=== PATIENT | female | born 1965 | race Caucasian/White ===

== ENCOUNTER 2018-09-27 09:59 | Emergency (ER) | payer SELFPAY ==
[~2018-09-27] VITALS: Ht 172.7 cm; Wt 108.4 kg
[~2018-09-27 09:59] MED LIST: ALBU90I INH; ASPI325; AZIT250 PO; BENZ100A PO; CODGUAEL PO; CRUTCH4 USE; CYCL10 PO; HYDACE5 PO; METO5A PO; MOXI400 PO; NEOPOLHCSU OT; OXYACE5T PO; PRED20 PO; Zithromax250 MG PO; Zofran Odt4 MG SL
[2018-09-27] MEDS ORDERED: Aspirin EC81 MG (10:21)
[2018-09-27] MEDS ORDERED: Bactrim Ds Tab1 EACH PO (10:22)
[2018-09-27] MEDS ORDERED: Norco 7.5-3251 EACH PO (10:22)
[2018-09-27 13:04] LABS: Source, Urine Clean Catch
[2018-09-27 13:11] LABS: Bilirubin, Urine Neg (Neg); Blood, Urine Neg (Neg); Glucose Qualitative, Urine Neg (Neg); Ketones, Urine 2+ (Neg); Leukocyte Esterase, Urine Neg (Neg); Nitrite, Urine Neg (Neg); Protein, Urine Neg (Neg); Urobilinogen, Urine NORM (Normal)
[2018-09-27] MEDS ORDERED: Norco 5-325 Ta1 EACH PO (13:26)
[2018-09-27 14:42] LABS: Appearance, Urine Clear (Clear); Color, Urine Yellow (P-Yellow)
== END 2018-09-27 13:36 | disposition home or self-care (01) ==
LOC: ER 09:59
PROVIDERS: Emergency Medicine
DX: R16.2 Hepatomegaly with splenomegaly, not elsewhere classified (principal); J45.909 Unspecified asthma, uncomplicated; F17.200 Nicotine dependence, unspecified, uncomplicated; Z88.0 Allergy status to penicillin; Z88.5 Allergy status to narcotic agent; Z88.1 Allergy status to other antibiotic agents; Z79.51 Long term (current) use of inhaled steroids; Z79.82 Long term (current) use of aspirin
CPT/HCPCS: 74177; 81003; 99284-25; Q9967

== ENCOUNTER 2019-10-05 02:07 | Emergency (ER) | payer SELFPAY ==
[~2019-10-05] VITALS: Ht 172.7 cm; Wt 90.7 kg
[~2019-10-05 02:07] MED LIST changes: +Aspirin EC81 MG; +Bactrim Ds Tab1 EACH PO; +Norco 5-325 Ta1 EACH PO; +Norco 7.5-3251 EACH PO
[2019-10-05] MEDS ORDERED: ATOR20 PO (02:45)
== END 2019-10-05 03:52 | disposition left against medical advice (07) ==
LOC: ER 02:07
DX: Z53.21 Procedure and treatment not carried out due to patient leaving prior to being seen by health care provider (principal)

== ENCOUNTER 2024-06-04 06:47 | Emergency (ER) | payer OTHER ==
[~2024-06-04] VITALS: Ht 172.7 cm; Wt 117.9 kg
[~2024-06-04 06:47] MED LIST changes: +ATOR20 PO
[2024-06-04 07:05] VITALS: BP 157/85
== END 2024-06-04 08:46 | disposition home or self-care (01) ==
LOC: ER 06:47
DX: S70.11XA Contusion of right thigh, initial encounter (principal); J45.909 Unspecified asthma, uncomplicated; F17.210 Nicotine dependence, cigarettes, uncomplicated; W01.0XXA Fall on same level from slipping, tripping and stumbling without subsequent striking against object, initial encounter; Z79.899 Other long term (current) drug therapy; Z88.0 Allergy status to penicillin; Z88.5 Allergy status to narcotic agent; Z88.1 Allergy status to other antibiotic agents
CPT/HCPCS: 93971; 99283-25